=== PATIENT | female | born 2000 | race Caucasian/White ===

== ENCOUNTER 2023-11-17 19:40 | Emergency (ER) | payer BC, SELFPAY ==
[2023-11-17 19:40] VITALS: BMI 19.7
[2023-11-17 19:45] VITALS: BP 119/78
--- NOTE | 2023-11-17 20:59 | ED.GENMED ---
History of Present Illness
General
Chief Complaint: Eye Problems
Source: patient and family
Exam Limitations: none
Time Seen by Provider: 11/17/23 20:38
Nursing documentation reviewed up to this point in time: agreed with
Travel History
Have you had any contact with someone who has COVID-19?: No
Do you have any symptoms of coronavirus? Fever > 100 degrees, chills, cough, shortness of breath, sore throat, loss of taste or smell, muscle aches, or headache?: No
History of Present Illness
History of Present Illness:
22-year-old college student history of migraines presents with headache some vision loss on the right side started around 7 PM last about half an hour, no vomiting no fevers, said similar episodes in the past saw neurologist told that she was either
having migraines or TIA, she has headaches fairly frequently less so recently she is got new glasses, does complain of some headache now, vision is improved for the most part she had no slurred speech no arm or leg weakness drinks alcohol socially
not excess none recently, non-smoker not known to be diabetic no history of seizures
Past History
Past History
ED Past Medical History: Other (Complicated migraine)
Social History
Tobacco: Non-smoker
Alcohol: Occasional
Drug: None
Personal: Single
Living: with family
Employment: Student
Phy Exam
Physical Exam
Physical Exam:
Physical Exam
General: no apparent distress, not acutely ill
Neck: No jaundice no photophobia
Heart: s1/s2 regular rate and rhythm, no murmur. equal radial pulses.
Lungs: no acute respiratory distress. clear bilaterally
Neuro: alert and oriented. no focal neurological deficits normal finger-nose no pronator drift
Skin: no rash
Psychiatric: well kept. interactive and cooperative
Extremities: no edema.
Course
Orders/Labs/Results
Orders:
Orders
11/17/23 20:51
Electrocardiogram (*1) Stat
Reason for Study: Other
Other Reason for Exam: neuro symptoms
CT Head W/o Iv Contrast Urgent
Comment:
Reason For Exam: headache vision loss
EKG- Treatment ONCE
0.9% Sodium Chloride 1000 ml [Nss] 1,000 ml IV BOLUS
Acetaminophen [Tylenol] 650 mg PO NOW STA
11/17/23 23:10
Ibuprofen [Motrin] 600 mg PO NOW STA
11/17/23 22:42
11/17/23 22:42
Vital Signs
Initial and Last Documented VS:
Initial Vital Signs
Temp Pulse Resp BP Pulse Ox
97.8 F 97 19 119/78 100
11/17/23 19:45 11/17/23 19:45 11/17/23 19:45 11/17/23 19:45 11/17/23 19:45
Last Documented Vital Signs
Temp Pulse Resp BP Pulse Ox
97.8 F 97 19 119/78 100
11/17/23 19:45 11/17/23 19:45 11/17/23 19:45 11/17/23 19:45 11/17/23 19:45
MDM/Problems Addressed
Differential Diagnosis Includes:
Complicated migraine dehydration less likely TIA or mass
MDM/Problems Addressed:
Headache visual
Chronic conditions affecting care:
Complicated migraine
Acute Exacerbation and/or Progression of Chronic Illness:
Complicated migraine
*Radiology
Radiology exam reviewed: radiology read reviewed
*Pulse Oximetry
Patient hypoxic: no
*EKG
Interpreted by ED Provider?: Yes
Interpretation: normal
Comparison EKG: no comparison EKG present
Heart Rate: 78
Rate: normal
Rhythm: sinus
Ischemia: no ischemia
*Reclamation Kettle Tender Interpretation
Rate: Reclamation Kettle Tender- N/A
*Critical Care Note
Total Time (30-74mins, 75-104mins- exclusive of procedures): Not Applicable
Update Note
Update Note:
Update, CT noted report noted
11 PM patient looks well feeling better
ED Attending Note
-
Portions of this chart may have been created with voice recognition software.� Occasional wrong word or��sound alike� substitutions may have occurred due to the inherent limitations of voice recognition software.
Discharge Plan
Departure
Patient Disposition: Home (Routine Discharge)
Date of Disposition: 11/17/23
Time of Disposition: 23:10
Patient with high blood pressure during this ER visit?: No
Condition: Good
Discharge Problem:
Complicated migraine
Prescriptions:
New
ibuprofen 600 mg tablet
600 mg PO Q8H PRN (Reason: Pain) Qty: 30 0RF
ondansetron 4 mg tablet,disintegrating
4 mg PO TIDPRN PRN (Reason: nausea/vomiting) Qty: 20 0RF
Referrals:
Zia Mercedes MD [Family Provider] -
Interventions
Interventions:
*Risk Screen - Suicide Last Done: 11/17/23 19:45
*General Assessment Last Done: 11/17/23 19:45
*Neglect/Abuse Screening Last Done: 11/17/23 19:45
*ED COVID-19 Vaccine History Last Done: 11/17/23 19:45
[2023-11-17 21:20] VITALS: BP 107/74
[2023-11-17] MEDS: TYLENOL 650 MG PO (21:22)
[2023-11-17 22:18] VITALS: BP 101/69
[2023-11-17 23:00] VITALS: BP 95/63
[2023-11-17] MEDS: MOTRIN 600 MG PO (23:23)
== END 2023-11-17 23:49 | disposition home or self-care (01) ==
LOC: EMR 19:40
PROVIDERS: EMERGENCY PHYSICIAN Emergency Medicine; FAMILY PHYSICIAN Family Medicine
DX: G43.109 Migraine with aura, not intractable, without status migrainosus (principal)
CPT/HCPCS: 99284; 70450; 93005